=== PATIENT | female | born 1955 | race Caucasian/White ===

== ENCOUNTER → 2017-05-28 | Outpatient (REF) | payer MEDICARE, OTHER ==
[2017-05-28 13:07] LABS: MEAN CORPUSCULAR HEMOGLOBIN 29.2 pg (27.0-33.0); MEAN CORPUSCULAR HGB CONC 32.8 g/dl (32.0-36.5); WHITE BLOOD COUNT 6.7 K/mm3 (4.0-10.0)
[2017-05-28 13:34] LABS: ALBUMIN 3.8 GM/DL (3.2-5.2); ALBUMIN/GLOBULIN RATIO 1.46 (1.00-1.93); ALKALINE PHOSPHATASE 70 U/L (45-117); ALT/SGPT 22 U/L (12-78); ANION GAP 6 MEQ/L (8-16); AST/SGOT 14 U/L (15-37); BILIRUBIN,TOTAL 0.7 MG/DL (0.2-1.0); BLOOD UREA NITROGEN 9 MG/DL (7-18); CALCIUM LEVEL 8.8 MG/DL (8.8-10.2); CARBON DIOXIDE LEVEL 30 MEQ/L (21-32); CHLORIDE LEVEL 107 MEQ/L (98-107); CHOLESTEROL LEVEL 261 MG/DL (<200); CREATININE FOR GFR 0.88 MG/DL (0.55-1.02); FREE T4 0.85 NG/DL (0.76-1.46); GLOMERULAR FILTRATION RATE > 60.0 (>45); GLUCOSE, FASTING 89 MG/DL (80-110); SODIUM LEVEL 143 MEQ/L (136-145); TOTAL PROTEIN 6.4 GM/DL (6.4-8.2); TRIGLYCERIDES LEVEL 160 MG/DL (<150)
[2017-05-28 14:43] LABS: HEP C VIRUS AB SCREEN MEDICARE 1.2 INDEX (<0.8)
== END ==
LOC: M SFHCADAM 09:29
PROVIDERS: ATTEND Physician Assistant
DX: E78.5 Hyperlipidemia, unspecified (principal); F17.200 Nicotine dependence, unspecified, uncomplicated; E03.9 Hypothyroidism, unspecified; E55.9 Vitamin D deficiency, unspecified; Z11.59 Encounter for screening for other viral diseases
CPT/HCPCS: 80053; 80061; 82306; 84439; 84443; 85027; 87521; G0472

== ENCOUNTER → 2017-06-09 | Outpatient (CLI) | payer MEDICARE, OTHER ==
--- NOTE | 2017-06-09 17:10 | REP ---
Clinical: Chronic left hip pain. Technique: Neutral and frog lateral views of the left hip. Findings: Age-related changes are appreciated including minimal joint space narrowing and subtle increase sclerosis to the acetabular roof. No acute fracture dislocation. No further overt osteoarthritic degenerative changes are appreciated. Impression: Age-related degenerative changes. No acute fracture or dislocation. Signed by Pollo Sandoval MD 06/09/2017 05:01 P
--- NOTE | 2017-06-09 17:16 | REP ---
LUMBAR SPINE COMPLETE: 06/09/2017. COMPARISON: No prior study. CLINICAL HISTORY: Low back and left hip pain for 3 months. FINDINGS: Five views are provided. Normal lordosis is maintained. There is slight disc space narrowing at L5-S1. There is facet arthropathy present. A few millimeters of retrolisthesis of L5 on S1 due to that arthropathy. The L4-5 level and above shows intact disc height. Vertebral body heights are normal throughout. Tiny anterior osteophytes are noted. No compression deformity is seen. No spondylolysis or spondylolisthesis noted. Vascular calcifications aorta and iliac vessels. The pedicles, spinous and transverse processes are intact. No scoliosis. IMPRESSION. 1. Minor degenerative disc and facet arthritic changes at L5-S1 without compression fractures, spondylolysis or focal lesion. A few millimeters of retrolisthesis of L5 on S1 due to that arthropathy. Signed by Harvey Vásquez MD 06/09/2017 05:26 P
== END ==
LOC: M ADAMS 16:32
PROVIDERS: ATTEND Physician Assistant
DX: M16.12 Unilateral primary osteoarthritis, left hip (principal); M25.652 Stiffness of left hip, not elsewhere classified; M25.552 Pain in left hip

== ENCOUNTER → 2017-08-03 | Outpatient (CLI) | payer MEDICARE, OTHER ==
--- NOTE | 2017-08-03 15:12 | REPMRS ---
Patient History The patient states she had a clinical breast exam in 07/2017. Patient is postmenopausal. No known family history of cancer. Taking unspecified hormones for 24 years. Digital Woman Screen Mammo: August 03, 2017 - Exam #: [id number] Bilateral CC and MLO view(s) were taken. Technologist: Nidhi Ovalles, Technologist Prior study comparison: June 30, 2016, digital woman screen mammo performed at [facility]. June 28, 2015, digital woman screen mammo performed at [facility]. June 27, 2014, digital woman screen mammo performed at [facility]. FINDINGS: There are scattered fibroglandular densities. There has been no change in the appearance of the mammogram from the prior studies. There is a mild amount of scattered fibroglandular density which is fairly symmetric. There is no interval development of dominant mass, architectural distortion, or clustered microcalcification suggestive of malignancy. ASSESSMENT: BI-RADS/ACR category 1 mammogram. Negative. Recommendation Routine screening mammogram in 1 year (for women over age 40). This mammogram was interpreted with the aid of an FDA-approved computer-aided dectection system. Electronically Signed By: Ivan Tsai MD 08/03/17 [id number]
== END ==
LOC: M WHC 14:16
PROVIDERS: ATTEND Nurse Practitioner Women's Health
DX: Z01.419 Encounter for gynecological examination (general) (routine) without abnormal findings (principal); Z12.31 Encounter for screening mammogram for malignant neoplasm of breast; Z78.0 Asymptomatic menopausal state; Z92.29 Personal history of other drug therapy
CPT/HCPCS: G0101; G0202

== ENCOUNTER → 2018-04-13 | Day surgery (SDC) | payer MEDICARE, OTHER ==
[~2018-04-13] MED LIST: BSS with VANC/TOB/EPI for EYE CASES IR; HEALON DUET (HEALON 10MG/ML 0.55ML & HEALON ENDOCOAT 30MG/ML 0.85ML) As Ordered; LIDOCAINE 1% SDV 5 ML VIAL As Ordered; MIDAZOLAM INJ 2 MG/2 ML VIAL (J2250) As Ordered; MOXIFLOXACIN IN BSS 0.25MG/0.25ML INTRACAMERAL INJ (OR EYE ONLY)(J2280) As Ordered; OFLOXACIN 0.3 % (OCUFLOX) OPTH SOL 5ML OD; PHENYLEPHRINE 2.5% OPHTH SOL 2ML OD; PHENYLEPHRINE HCL 10 % OPHTH. SOL 5ML OD; POVIDONE-IODINE 5% OPHTH PREP SOL 30ML As Ordered; TRIAMCINOLONE PRES FR 40 MG/ML 1ML(TRIESENCE)(OR EYE ONLY)(J3300 PER 1MG) As Ordered; TROPICAMIDE 1% OPHTH SOLN 2ML OD; fentaNYL 100 MCG/2 ML INJECTION (J3010) As Ordered
[2018-04-13] MEDS: LIDOCAINE 3.5 % 1ML OPHTH TOPICAL GEL OU ×2 (07:35)
[2018-04-13] MEDS: CYCLOPENTOLATE 2% OPHTH SOLN 2ML BTL OD ×2 (07:35)
== END | disposition home or self-care (01) ==
LOC: M SDC 06:50
DX: H25.9 Unspecified age-related cataract (principal); Z53.09 Procedure and treatment not carried out because of other contraindication; H10.9 Unspecified conjunctivitis

== ENCOUNTER → 2018-06-02 | Outpatient (REF) | payer MEDICARE, OTHER ==
[2018-06-02 12:58] LABS: HEMATOCRIT 45.1 % (36.0-47.0); HEMOGLOBIN 14.2 g/dl (12.0-15.5); MEAN CORPUSCULAR HEMOGLOBIN 28.4 pg (27.0-33.0); MEAN CORPUSCULAR HGB CONC 31.5 g/dl (32.0-36.5); MEAN CORPUSCULAR VOLUME 90.2 fl (80.0-96.0); PLATELET COUNT, AUTOMATED 286 10^3/uL (150-450); RED CELL DISTRIBUTION WIDTH 12.8 % (11.5-14.5); WHITE BLOOD COUNT 6.4 10^3/uL (4.0-10.0)
[2018-06-02 13:24] LABS: TOTAL 25(OH) VITAMIN D 25.3 NG/ML (30.0-100.0)
[2018-06-02 13:27] LABS: ALBUMIN 3.7 GM/DL (3.2-5.2); ALBUMIN/GLOBULIN RATIO 1.19 (1.00-1.93); ALKALINE PHOSPHATASE 82 U/L (45-117); ALT/SGPT 22 U/L (12-78); ANION GAP 8 MEQ/L (8-16); AST/SGOT 14 U/L (7-37); BILIRUBIN,TOTAL 0.9 MG/DL (0.2-1.0); BLOOD UREA NITROGEN 13 MG/DL (7-18); CALCIUM LEVEL 9.2 MG/DL (8.8-10.2); CARBON DIOXIDE LEVEL 29 MEQ/L (21-32); CHLORIDE LEVEL 106 MEQ/L (98-107); CHOLESTEROL LEVEL 259 MG/DL (<200); CHOLESTEROL RISK RATIO 4.389 (<5); CREATININE FOR GFR 1.01 MG/DL (0.55-1.30); GLOMERULAR FILTRATION RATE 59.3 (>45); GLUCOSE, FASTING 84 MG/DL (70-100); HDL CHOLESTEROL 59 MG/DL (>40); NON-HDL-C 200 MG/DL; SODIUM LEVEL 143 MEQ/L (136-145); TOTAL PROTEIN 6.8 GM/DL (6.4-8.2); TRIGLYCERIDES LEVEL 90 MG/DL (<150)
[2018-06-02 13:39] LABS: POTASSIUM SERUM 5.4 MEQ/L (3.5-5.1)
== END ==
LOC: M SFHCADAM 11:12
DX: F17.200 Nicotine dependence, unspecified, uncomplicated (principal); E78.5 Hyperlipidemia, unspecified
CPT/HCPCS: 80053

== ENCOUNTER → 2018-08-04 | Outpatient (CLI) | payer MEDICARE, OTHER | LOC: M WHC 14:27 | DX: Z12.31 Encounter for screening mammogram for malignant neoplasm of breast (principal); Z78.0 Asymptomatic menopausal state; Z79.890 Hormone replacement therapy | CPT/HCPCS: 77067 ==

== ENCOUNTER → 2019-09-14 | Outpatient (REF) | payer MEDICARE, OTHER ==
[~2019-09-14] MED LIST changes: +ATIV1TAB10 PO; -BSS with VANC/TOB/EPI for EYE CASES IR; +BUSP5TA PO; +CETI10TA PO; +ESTR0.5T3 PO; +ESTR25TA PO; -HEALON DUET (HEALON 10MG/ML 0.55ML & HEALON ENDOCOAT 30MG/ML 0.85ML) As Ordered; -LIDOCAINE 1% SDV 5 ML VIAL As Ordered; +MEDR1TAB2 PO; -MIDAZOLAM INJ 2 MG/2 ML VIAL (J2250) As Ordered; -MOXIFLOXACIN IN BSS 0.25MG/0.25ML INTRACAMERAL INJ (OR EYE ONLY)(J2280) As Ordered; -OFLOXACIN 0.3 % (OCUFLOX) OPTH SOL 5ML OD; -PHENYLEPHRINE 2.5% OPHTH SOL 2ML OD; -PHENYLEPHRINE HCL 10 % OPHTH. SOL 5ML OD; -POVIDONE-IODINE 5% OPHTH PREP SOL 30ML As Ordered; +PROBCAP14 PO; -TRIAMCINOLONE PRES FR 40 MG/ML 1ML(TRIESENCE)(OR EYE ONLY)(J3300 PER 1MG) As Ordered; -TROPICAMIDE 1% OPHTH SOLN 2ML OD; +ZOLO25TA PO; -fentaNYL 100 MCG/2 ML INJECTION (J3010) As Ordered
== END ==
LOC: M PLALAB 14:10
PROVIDERS: ATTEND Nurse Practitioner Women's Health
DX: Z12.4 Encounter for screening for malignant neoplasm of cervix (principal)

== ENCOUNTER → 2019-09-14 | Outpatient (CLI) | payer MEDICARE, OTHER ==
--- NOTE | 2019-09-14 19:08 | REPMRS ---
Patient History The patient states she had a clinical breast exam in 2018. No known family history of cancer. Taking unspecified hormones for 25 years. Digital Woman Screen Mammo: September 14, 2019 - Exam #: [id number] Bilateral CC and MLO view(s) were taken. Technologist: Susan Khanna, Technologist Prior study comparison: August 04, 2018, bilateral digital woman screen mammo performed at [facility]. August 03, 2017, digital woman screen mammo performed at [facility]. June 30, 2016, digital woman screen mammo performed at [facility]. FINDINGS: The breast tissue is almost entirely fat. There has been no change in the appearance of the mammogram from the prior studies. There is no interval development of dominant mass, architectural distortion, or grouped microcalcification typical of malignancy. 3-D tomosynthesis shows no additional findings. Assessment: BI-RADS/ACR category 1 mammogram. Negative Mammogram. Recommendation Routine screening mammogram of both breasts in 1 year (for women over age 40). This patient's Lifetime Breast Cancer RIsk is estimated at 4.5 %. This mammogram was interpreted with the aid of an FDA-approved computer-aided dectection system. Electronically Signed By: Ivan Tsai MD 09/14/19 [id number]
== END ==
LOC: M WHC 13:47
PROVIDERS: ATTEND Nurse Practitioner Women's Health
DX: Z12.31 Encounter for screening mammogram for malignant neoplasm of breast (principal); Z92.29 Personal history of other drug therapy
CPT/HCPCS: 77063; 77067; G0463

== ENCOUNTER → 2019-11-28 | Outpatient (REF) | payer MEDICARE, OTHER ==
[2019-11-28 12:59] LABS: ALBUMIN 3.7 GM/DL (3.2-5.2); BILIRUBIN,TOTAL 0.7 MG/DL (0.2-1.0); CHOLESTEROL RISK RATIO 4.274 (<5); CREATININE FOR GFR 1.01 MG/DL (0.55-1.30); FREE T4 0.9 NG/DL (0.76-1.46); GLOMERULAR FILTRATION RATE 58.9 (>45); POTASSIUM SERUM 5.4 MEQ/L (3.5-5.1); THYROID STIMULATING HORMONE 1.78 uIU/ML (0.358-3.740); TOTAL PROTEIN 6.4 GM/DL (6.4-8.2)
[2019-11-28 13:00] LABS: TOTAL 25(OH) VITAMIN D 11.6 NG/ML (30.0-100.0)
[2019-11-28 13:08] LABS: HEMATOCRIT 44.3 % (36.0-47.0); HEMOGLOBIN 14.1 g/dl (12.0-15.5); MEAN CORPUSCULAR HEMOGLOBIN 28.5 pg (27.0-33.0); MEAN CORPUSCULAR HGB CONC 31.8 g/dl (32.0-36.5); MEAN CORPUSCULAR VOLUME 89.7 fl (80.0-96.0); PLATELET COUNT, AUTOMATED 265 10^3/uL (150-450); RED BLOOD COUNT 4.94 10^6/uL (4.00-5.40); WHITE BLOOD COUNT 6.1 10^3/uL (4.0-10.0)
== END ==
LOC: M SFHCADAM 09:40
PROVIDERS: ATTEND Physician Assistant
DX: E78.5 Hyperlipidemia, unspecified (principal); F17.210 Nicotine dependence, cigarettes, uncomplicated; E03.9 Hypothyroidism, unspecified; E55.9 Vitamin D deficiency, unspecified
CPT/HCPCS: 80053; 80061; 82306; 84439; 84443; 85027; 99406; G0463

== ENCOUNTER → 2020-10-10 | Outpatient (CLI) | payer MEDICARE, OTHER ==
--- NOTE | 2020-10-10 13:53 | REPMRS ---
Patient History The patient states she has not had a clinical breast exam in over a year. No known family history of cancer. Taking unspecified hormones for 25 years. 3D TOMOSYNTHESIS WAS PERFORMED. [facility] lifetime risk for breast cancer is 4.3%. Volpara breast density b. Digital Woman Screen Mammo: October 10, 2020 - Exam #: [id number] Bilateral CC and MLO view(s) were taken. Technologist: Susan Khanna, Technologist Prior study comparison: September 14, 2019, bilateral digital woman screen mammo performed at [facility]. August 04, 2018, bilateral digital woman screen mammo performed at [facility]. FINDINGS: There are scattered fibroglandular densities. There has been no change in the appearance of the mammogram from the prior studies. There is a mild amount of residual fibroglandular tissue which is fairly symmetric. There is no interval development of dominant mass, architectural distortion, or clustered microcalcification suggestive of malignancy. Assessment: BI-RADS/ACR category 1 mammogram. Negative Mammogram. Recommendation Routine screening mammogram in 1 year (for women over age 40). This mammogram was interpreted with the aid of an FDA-approved computer-aided dectection system. Electronically Signed By: Jimy Harp MD 10/10/20 [id number]
== END ==
LOC: M WHC 12:54
PROVIDERS: ATTEND Physician Assistant
DX: Z12.31 Encounter for screening mammogram for malignant neoplasm of breast (principal)

== ENCOUNTER → 2020-12-19 | Outpatient (REF) | payer MEDICARE, OTHER ==
[2020-12-19 16:53] LABS: HEMATOCRIT 46.7 % (36.0-47.0); HEMOGLOBIN 14.9 g/dl (12.0-15.5); MEAN CORPUSCULAR HEMOGLOBIN 28.8 pg (27.0-33.0); MEAN CORPUSCULAR HGB CONC 31.9 g/dl (32.0-36.5); MEAN CORPUSCULAR VOLUME 90.2 fl (80.0-96.0); PLATELET COUNT, AUTOMATED 258 10^3/uL (150-450); RED BLOOD COUNT 5.18 10^6/uL (4.00-5.40); WHITE BLOOD COUNT 6.4 10^3/uL (4.0-10.0)
[2020-12-19 17:25] LABS: BILIRUBIN,TOTAL 0.8 MG/DL (0.2-1.0); CALCIUM LEVEL 9.4 MG/DL (8.8-10.2); CHOLESTEROL RISK RATIO 4.13 (<5); CREATININE FOR GFR 1.02 MG/DL (0.55-1.30); FREE T4 0.84 NG/DL (0.76-1.46); GLOMERULAR FILTRATION RATE 58.1 (>45); POTASSIUM SERUM 5.2 MEQ/L (3.5-5.1); THYROID STIMULATING HORMONE 1.93 uIU/ML (0.358-3.740); TOTAL PROTEIN 6.8 GM/DL (6.4-8.2)
[2020-12-19 17:27] LABS: TOTAL 25(OH) VITAMIN D 12.3 NG/ML (30.0-100.0)
== END ==
LOC: M SFHCADAM 12:06
PROVIDERS: ATTEND Physician Assistant
DX: N95.9 Unspecified menopausal and perimenopausal disorder (principal); E78.5 Hyperlipidemia, unspecified; E55.9 Vitamin D deficiency, unspecified; F17.200 Nicotine dependence, unspecified, uncomplicated
CPT/HCPCS: 80053; 80061; 82306; 84439; 84443; 85027; 93005; G0463

== ENCOUNTER → 2021-03-20 | Outpatient (REF) | payer MEDICARE, OTHER ==
[2021-03-20 14:03] LABS: ALBUMIN 3.7 GM/DL (3.2-5.2); BILIRUBIN,TOTAL 0.6 MG/DL (0.2-1.0); CHOLESTEROL RISK RATIO 3.5 (<5); GLOMERULAR FILTRATION RATE 59.4 (>45); TOTAL PROTEIN 6.5 GM/DL (6.4-8.2)
[2021-03-20 14:12] LABS: TOTAL 25(OH) VITAMIN D 53.3 NG/ML (30.0-100.0)
== END ==
LOC: M SFHCADAM 08:56
PROVIDERS: ATTEND Physician Assistant
DX: E78.00 Pure hypercholesterolemia, unspecified (principal); E55.9 Vitamin D deficiency, unspecified

== ENCOUNTER → 2021-03-26 | Outpatient (CLI) | payer MEDICARE, OTHER ==
--- NOTE | 2021-03-26 15:00 | REP ---
INDICATION: UNILATERAL PRIMARY OSTEO. COMPARISON: None. TECHNIQUE: Axial T1 and T2. Sagittal T2. Coronal T1, fat suppressed proton density, fat suppressed T2 and STIR. FINDINGS: The femoral heads are spherical in shape and symmetric in appearance. There is mild bilateral rather symmetric appearing hip joint space narrowing. No abnormal focal chondral or subchondral signal abnormality is seen on either side. There is no hip joint effusion. There is no evidence of a mass or mass effect. The cortical and marrow signal throughout the imaged pelvis is within normal limits. Mild degenerative changes are seen involving the imaged portions of the sacroiliac joints inferiorly. There is T2 hyper signal seen in the trochanteric tendono bursal region of each hip right slightly greater than left. Small [id number] dedicated magnified images of the right hip in all 3 planes shows small amount of fluid within the tendono bursal region. IMPRESSION: 1. Evidence of bilateral trochanteric tendono bursitis right greater than left as described above. 2. Mild bilateral hip degenerative changes and sacroiliac joint degenerative changes as described above. <Electronically signed by Carlyle Stanton > 03/26/21 [id number]
== END ==
LOC: M PLAIMG 13:52
PROVIDERS: ATTEND Physician Assistant
DX: M16.12 Unilateral primary osteoarthritis, left hip (principal)

== ENCOUNTER → 2021-05-15 | Outpatient (CLI) | payer MEDICARE, OTHER | LOC: M PLAIMG 14:34 | PROVIDERS: ATTEND Physician Assistant | DX: M47.896 Other spondylosis, lumbar region (principal); M48.061 Spinal stenosis, lumbar region without neurogenic claudication ==

== ENCOUNTER → 2021-07-08 | Outpatient (CLI) | payer MEDICARE, OTHER ==
--- NOTE | 2021-07-08 13:29 | REP ---
INDICATION: TOBACCO USE, COUGHING ALLERGIC SINUSITIS COMPARISON: 09/12/2013 TECHNIQUE: PA and lateral. FINDINGS: The mediastinum and cardiac silhouette are normal. The lung boggs are clear and without acute consolidation, effusion, or pneumothorax. The skeletal structures are intact and normal. IMPRESSION: No acute cardiopulmonary process. <Electronically signed by Pollo Sandoval > 07/08/21 [id number]
== END ==
LOC: M ADAMS 13:09
PROVIDERS: ATTEND Physician Assistant
DX: R05.9 Cough, unspecified (principal); J30.9 Allergic rhinitis, unspecified; F17.200 Nicotine dependence, unspecified, uncomplicated
CPT/HCPCS: 71046; G0463

== ENCOUNTER → 2022-08-10 | Outpatient (CLI) | payer MEDICARE, OTHER ==
[~2022-08-10] MED LIST changes: +ACET-907 PO; +ERGO500029 PO; +PRAV20TA2 PO
== END ==
LOC: M LABSMTC 11:40
PROVIDERS: ATTEND Anesthesiology
DX: Z01.812 Encounter for preprocedural laboratory examination (principal); Z11.52 Encounter for screening for COVID-19

== ENCOUNTER 2022-08-13 10:29 | Day surgery (SDC) | payer MEDICARE, OTHER ==
[~2022-08-13] VITALS: Ht 163.8 cm; Wt 59.8 kg
[~2022-08-13 10:29] MED LIST changes: +NS 1,000 ML IV ONE
[2022-08-13] MEDS ORDERED: LIDOCAINE 2% 100MG/5ML SDV (FOR ANES.) As Ordered ONE (13:32)
[2022-08-13] MEDS ORDERED: propofoL 200 MG/20 ML VIAL As Ordered ONE (13:32)
[2022-08-13 14:11] VITALS: BP 122/56
== END 2022-08-13 14:18 | disposition home or self-care (01) ==
LOC: M OPP 10:29
PROVIDERS: ATTEND Internal Medicine Gastroenterology
DX: Z12.11 Encounter for screening for malignant neoplasm of colon (principal); Z86.010 Personal history of colon polyps; D12.5 Benign neoplasm of sigmoid colon; K57.30 Diverticulosis of large intestine without perforation or abscess without bleeding; F17.200 Nicotine dependence, unspecified, uncomplicated; Z79.02 Long term (current) use of antithrombotics/antiplatelets; Z79.818 Long term (current) use of other agents affecting estrogen receptors and estrogen levels; Z79.899 Other long term (current) drug therapy; Z86.16 Personal history of COVID-19; Z88.0 Allergy status to penicillin; Z88.1 Allergy status to other antibiotic agents; Z88.5 Allergy status to narcotic agent; Z88.8 Allergy status to other drugs, medicaments and biological substances; Z80.6 Family history of leukemia; Z80.8 Family history of malignant neoplasm of other organs or systems

== ENCOUNTER → 2022-11-06 | Outpatient (REF) | payer MEDICARE, OTHER ==
[~2022-11-06] MED LIST changes: -NS 1,000 ML IV ONE
[2022-11-06 22:00] LABS: HEMATOCRIT 43.4 % (36.0-47.0); HEMOGLOBIN 13.6 g/dl (12.0-15.5); MEAN CORPUSCULAR HEMOGLOBIN 28.9 pg (27.0-33.0); MEAN CORPUSCULAR HGB CONC 31.3 g/dl (32.0-36.5); MEAN CORPUSCULAR VOLUME 92.1 fl (80.0-96.0); PLATELET COUNT, AUTOMATED 263 10^3/uL (150-450); RED BLOOD COUNT 4.71 10^6/uL (4.00-5.40); WHITE BLOOD COUNT 7.7 10^3/uL (4.0-10.0)
[2022-11-06 22:40] LABS: ALKALINE PHOSPHATASE 86 U/L (46-116); ALT/SGPT 18 U/L (7.0-40); AST/SGOT 24 U/L (<34); BILIRUBIN,TOTAL 1.4 MG/DL (0.3-1.2); BLOOD UREA NITROGEN 17 MG/DL (9-23); CALCIUM LEVEL 9.6 MG/DL (8.3-10.6); CARBON DIOXIDE LEVEL 30 MMOL/L (20-31); CHLORIDE LEVEL 103 MMOL/L (98-107); CHOLESTEROL LEVEL 238 MG/DL (<200); CHOLESTEROL RISK RATIO 3.03 (<5); CREATININE FOR GFR 0.94 MG/DL (0.55-1.30); FREE T4 1.01 NG/DL (0.89-1.76); GLOMERULAR FILTRATION RATE > 60.0 (>45); GLUCOSE, FASTING 98 MG/DL (74-106); HDL CHOLESTEROL 78.4 MG/DL (>40); LDL CHOLESTEROL 148.6 MG/DL (<100); NON-HDL-C 160 MG/DL; POTASSIUM SERUM 5.3 MMOL/L (3.5-5.1); SODIUM LEVEL 139 MMOL/L (136-145); THYROID STIMULATING HORMONE 1.502 uIU/ML (0.55-4.78); TOTAL 25(OH) VITAMIN D 68.5 NG/ML (20.0-100.0); TOTAL PROTEIN 6.8 G/DL (5.7-8.2); TRIGLYCERIDES LEVEL 55 MG/DL (<150)
== END ==
LOC: M SFHCADAM 15:20
PROVIDERS: ATTEND Physician Assistant
DX: E55.9 Vitamin D deficiency, unspecified (principal); F32.2 Major depressive disorder, single episode, severe without psychotic features; N95.9 Unspecified menopausal and perimenopausal disorder; F42.3 Hoarding disorder; E03.9 Hypothyroidism, unspecified; E78.00 Pure hypercholesterolemia, unspecified; F17.200 Nicotine dependence, unspecified, uncomplicated

== ENCOUNTER → 2022-12-02 | Outpatient (CLI) | payer MEDICARE, OTHER | LOC: M RAD 09:42 | PROVIDERS: ATTEND Physician Assistant | DX: I65.22 Occlusion and stenosis of left carotid artery (principal) ==

== ENCOUNTER → 2023-01-25 | Outpatient (CLI) | payer MEDICARE, OTHER | LOC: M SOG 08:12 | PROVIDERS: ATTEND Orthopaedic Surgery | DX: M54.50 Low back pain, unspecified (principal) ==

== ENCOUNTER → 2023-02-12 | Outpatient (CLI) | payer MEDICARE, OTHER | LOC: M RAD 13:08 | PROVIDERS: ATTEND Orthopaedic Surgery | DX: M47.27 Other spondylosis with radiculopathy, lumbosacral region (principal) ==

== ENCOUNTER → 2023-04-19 | Outpatient (CLI) | payer MEDICARE, OTHER | LOC: M PAIN 16:00 | PROVIDERS: ATTEND Anesthesiology | DX: M48.061 Spinal stenosis, lumbar region without neurogenic claudication (principal); M51.16 Intervertebral disc disorders with radiculopathy, lumbar region; N32.81 Overactive bladder; M54.2 Cervicalgia; G47.00 Insomnia, unspecified; F90.9 Attention-deficit hyperactivity disorder, unspecified type; H81.09 Meniere's disease, unspecified ear; F41.9 Anxiety disorder, unspecified; K58.2 Mixed irritable bowel syndrome; I65.21 Occlusion and stenosis of right carotid artery; E78.5 Hyperlipidemia, unspecified; E55.9 Vitamin D deficiency, unspecified; F17.210 Nicotine dependence, cigarettes, uncomplicated; Z79.899 Other long term (current) drug therapy; Z88.5 Allergy status to narcotic agent; Z88.0 Allergy status to penicillin; Z88.8 Allergy status to other drugs, medicaments and biological substances ==

== ENCOUNTER → 2023-04-27 | Outpatient (CLI) | payer MEDICARE, OTHER | LOC: M PAIN 15:45 → M TMPAIN 15:45 | PROVIDERS: ATTEND Anesthesiology | DX: M48.062 Spinal stenosis, lumbar region with neurogenic claudication (principal); M51.16 Intervertebral disc disorders with radiculopathy, lumbar region; M48.061 Spinal stenosis, lumbar region without neurogenic claudication; N32.81 Overactive bladder; M54.2 Cervicalgia; G47.00 Insomnia, unspecified; F90.9 Attention-deficit hyperactivity disorder, unspecified type; H81.09 Meniere's disease, unspecified ear; F41.9 Anxiety disorder, unspecified; K58.2 Mixed irritable bowel syndrome; I65.21 Occlusion and stenosis of right carotid artery; E78.5 Hyperlipidemia, unspecified; E55.9 Vitamin D deficiency, unspecified; F17.210 Nicotine dependence, cigarettes, uncomplicated; Z79.899 Other long term (current) drug therapy; Z88.5 Allergy status to narcotic agent; Z88.0 Allergy status to penicillin; Z88.8 Allergy status to other drugs, medicaments and biological substances ==

== ENCOUNTER → 2023-05-13 | Outpatient (CLI) | payer MEDICARE, OTHER | LOC: M ADAMS 13:40 | PROVIDERS: ATTEND Physician Assistant | DX: R05.3 Chronic cough (principal) ==

== ENCOUNTER → 2023-05-20 | Outpatient (CLI) | payer MEDICARE, OTHER ==
[~2023-05-20] MED LIST changes: +ISOVUE-M 300 61% 15ML VIAL As Ordered ONE; +LIDOCAINE 1% SDV 30ML VIAL As Ordered ONE; +methylPREDNISolone SUSP 40MG/ML 1ML VIAL (DEPO MEDROL) As Ordered ONE
== END ==
LOC: M PAIN 13:00
PROVIDERS: ATTEND Anesthesiology
DX: M51.16 Intervertebral disc disorders with radiculopathy, lumbar region (principal); N32.81 Overactive bladder; M54.2 Cervicalgia; G47.00 Insomnia, unspecified; F41.9 Anxiety disorder, unspecified; K58.2 Mixed irritable bowel syndrome; E78.5 Hyperlipidemia, unspecified; E55.9 Vitamin D deficiency, unspecified; F17.210 Nicotine dependence, cigarettes, uncomplicated; Z79.899 Other long term (current) drug therapy; Z88.0 Allergy status to penicillin; Z88.5 Allergy status to narcotic agent; Z88.8 Allergy status to other drugs, medicaments and biological substances
CPT/HCPCS: 62323; J1030; Q9967

== ENCOUNTER → 2023-06-10 | Outpatient (CLI) | payer MEDICARE, OTHER ==
[~2023-06-10] MED LIST changes: -ISOVUE-M 300 61% 15ML VIAL As Ordered ONE; -LIDOCAINE 1% SDV 30ML VIAL As Ordered ONE; -methylPREDNISolone SUSP 40MG/ML 1ML VIAL (DEPO MEDROL) As Ordered ONE
== END ==
LOC: M CARPUL 13:45
PROVIDERS: ATTEND Physician Assistant
DX: R01.1 Cardiac murmur, unspecified (principal)

== ENCOUNTER → 2023-06-30 | Outpatient (CLI) | payer MEDICARE, OTHER | LOC: M PAIN 15:00 | PROVIDERS: ATTEND Anesthesiology | DX: M48.00 Spinal stenosis, site unspecified (principal); M51.16 Intervertebral disc disorders with radiculopathy, lumbar region; N32.81 Overactive bladder; F41.9 Anxiety disorder, unspecified; K58.2 Mixed irritable bowel syndrome; E78.5 Hyperlipidemia, unspecified; I65.23 Occlusion and stenosis of bilateral carotid arteries; E55.9 Vitamin D deficiency, unspecified; F17.210 Nicotine dependence, cigarettes, uncomplicated; Z79.899 Other long term (current) drug therapy; Z88.0 Allergy status to penicillin; Z88.5 Allergy status to narcotic agent; Z88.8 Allergy status to other drugs, medicaments and biological substances ==

== ENCOUNTER → 2023-07-26 | Outpatient (CLI) | payer MEDICARE, OTHER | LOC: M WHC 12:57 | PROVIDERS: ATTEND Physician Assistant | DX: Z12.31 Encounter for screening mammogram for malignant neoplasm of breast (principal) ==

== ENCOUNTER → 2023-08-27 | Outpatient (CLI) | payer MEDICARE, OTHER ==
[~2023-08-27] MED LIST changes: +TRIAMCINOLONE ACETONIDE SUSP 40MG/ML 1ML VIAL As Ordered ONE
== END ==
LOC: M PAIN 10:15
PROVIDERS: ATTEND Anesthesiology
DX: M47.816 Spondylosis without myelopathy or radiculopathy, lumbar region (principal); M79.18 Myalgia, other site; G89.29 Other chronic pain; N32.81 Overactive bladder; M54.2 Cervicalgia; M54.40 Lumbago with sciatica, unspecified side; G47.00 Insomnia, unspecified; F41.9 Anxiety disorder, unspecified; K58.2 Mixed irritable bowel syndrome; E78.5 Hyperlipidemia, unspecified; E55.9 Vitamin D deficiency, unspecified; F17.210 Nicotine dependence, cigarettes, uncomplicated; Z88.5 Allergy status to narcotic agent; Z88.0 Allergy status to penicillin; Z88.8 Allergy status to other drugs, medicaments and biological substances; Z79.899 Other long term (current) drug therapy
CPT/HCPCS: 20552; J0665; J3301

== ENCOUNTER → 2023-10-28 | Outpatient (CLI) | payer MEDICARE, OTHER ==
[~2023-10-28] MED LIST changes: -TRIAMCINOLONE ACETONIDE SUSP 40MG/ML 1ML VIAL As Ordered ONE
== END ==
LOC: M PAIN 11:45
PROVIDERS: ATTEND Nurse Practitioner Family
DX: M79.10 Myalgia, unspecified site (principal); G89.29 Other chronic pain; F17.210 Nicotine dependence, cigarettes, uncomplicated; Z88.0 Allergy status to penicillin; Z88.5 Allergy status to narcotic agent; Z88.8 Allergy status to other drugs, medicaments and biological substances; Z79.899 Other long term (current) drug therapy

== ENCOUNTER → 2023-11-29 | Outpatient (CLI) | payer MEDICARE, OTHER | LOC: M PAIN 14:45 | PROVIDERS: ATTEND Nurse Practitioner Family | DX: M79.18 Myalgia, other site (principal); G89.29 Other chronic pain; M54.50 Low back pain, unspecified; M48.061 Spinal stenosis, lumbar region without neurogenic claudication; F41.9 Anxiety disorder, unspecified; K58.2 Mixed irritable bowel syndrome; E78.5 Hyperlipidemia, unspecified; I65.23 Occlusion and stenosis of bilateral carotid arteries; F17.210 Nicotine dependence, cigarettes, uncomplicated; Z79.899 Other long term (current) drug therapy; Z88.0 Allergy status to penicillin; Z88.5 Allergy status to narcotic agent; Z88.8 Allergy status to other drugs, medicaments and biological substances ==

== ENCOUNTER → 2024-01-25 | Outpatient (CLI) | payer MEDICARE, OTHER ==
[~2024-01-25] MED LIST changes: +TRIAMCINOLONE ACETONIDE SUSP 40MG/ML 1ML VIAL As Ordered ONE
== END ==
LOC: M PAIN 10:00
PROVIDERS: ATTEND Anesthesiology
DX: M79.18 Myalgia, other site (principal); G89.29 Other chronic pain; G83.4 Cauda equina syndrome; F41.9 Anxiety disorder, unspecified; M48.061 Spinal stenosis, lumbar region without neurogenic claudication; F17.210 Nicotine dependence, cigarettes, uncomplicated; K58.2 Mixed irritable bowel syndrome; E78.5 Hyperlipidemia, unspecified; E55.9 Vitamin D deficiency, unspecified; Z79.899 Other long term (current) drug therapy; Z88.0 Allergy status to penicillin; Z88.5 Allergy status to narcotic agent; Z88.8 Allergy status to other drugs, medicaments and biological substances
CPT/HCPCS: 20552; J0665; J3301

== ENCOUNTER → 2024-02-24 | Outpatient (CLI) | payer MEDICARE, OTHER ==
[~2024-02-24] MED LIST changes: -TRIAMCINOLONE ACETONIDE SUSP 40MG/ML 1ML VIAL As Ordered ONE
== END ==
LOC: M PAIN 11:45
PROVIDERS: ATTEND Nurse Practitioner Family
DX: M47.816 Spondylosis without myelopathy or radiculopathy, lumbar region (principal); M47.817 Spondylosis without myelopathy or radiculopathy, lumbosacral region; G89.29 Other chronic pain; N32.81 Overactive bladder; M54.2 Cervicalgia; M54.40 Lumbago with sciatica, unspecified side; F41.9 Anxiety disorder, unspecified; E55.9 Vitamin D deficiency, unspecified; E78.5 Hyperlipidemia, unspecified; K58.2 Mixed irritable bowel syndrome; F17.210 Nicotine dependence, cigarettes, uncomplicated; Z79.899 Other long term (current) drug therapy; Z88.0 Allergy status to penicillin; Z88.5 Allergy status to narcotic agent; Z88.8 Allergy status to other drugs, medicaments and biological substances

== ENCOUNTER → 2024-04-06 | Outpatient (CLI) | payer MEDICARE, OTHER | LOC: M PAIN 16:00 | PROVIDERS: ATTEND Nurse Practitioner Family | DX: M47.816 Spondylosis without myelopathy or radiculopathy, lumbar region (principal); M47.817 Spondylosis without myelopathy or radiculopathy, lumbosacral region; G89.29 Other chronic pain; N32.81 Overactive bladder; M54.2 Cervicalgia; M54.40 Lumbago with sciatica, unspecified side; G47.00 Insomnia, unspecified; F41.9 Anxiety disorder, unspecified; E55.9 Vitamin D deficiency, unspecified; F17.210 Nicotine dependence, cigarettes, uncomplicated; H81.09 Meniere's disease, unspecified ear; Z79.899 Other long term (current) drug therapy; Z88.0 Allergy status to penicillin; Z88.5 Allergy status to narcotic agent; Z88.8 Allergy status to other drugs, medicaments and biological substances ==

== ENCOUNTER → 2024-05-01 | Outpatient (CLI) | payer MEDICARE, OTHER | LOC: M ADAMS 13:41 | PROVIDERS: ATTEND Physician Assistant | DX: J20.9 Acute bronchitis, unspecified (principal) ==

== ENCOUNTER → 2024-06-16 | Outpatient (REF) | payer MEDICARE, OTHER ==
[2024-06-16 17:34] LABS: ALBUMIN 3.8 G/DL (3.2-5.2); BILIRUBIN,TOTAL 0.9 MG/DL (0.3-1.2); CALCIUM LEVEL 9.2 MG/DL (8.3-10.6); CREATININE FOR GFR 1.02 MG/DL (0.55-1.30); GLOMERULAR FILTRATION RATE 57.5 (>45); HDL CHOLESTEROL 58.2 MG/DL (>40); LDL CHOLESTEROL 135.6 MG/DL (<100); NON-HDL-C 174.8 MG/DL; POTASSIUM SERUM 4.7 MMOL/L (3.5-5.1); TOTAL PROTEIN 6.2 G/DL (5.7-8.2)
[2024-06-16 17:37] LABS: BASO % 0.6 % (0.0-1.0); EOS # 0.2 10^3/uL (0.0-0.5); EOS % 2.3 % (0.0-3.0); HEMOGLOBIN 14.1 g/dl (12.0-15.5); LYMPH # 1.7 10^3/uL (1.5-5.0); MEAN CORPUSCULAR HEMOGLOBIN 28.4 pg (27.0-33.0); MEAN CORPUSCULAR HGB CONC 31.3 g/dl (32.0-36.5); MEAN CORPUSCULAR VOLUME 90.5 fl (80.0-96.0); MONO # 0.6 10^3/uL (0.0-0.8); MONO % 8.3 % (2.0-8.0); NEUTROPHILS # 4.3 10^3/uL (1.5-8.5); NEUTROPHILS % 63.7 % (36.0-66.0); PLATELET COUNT, AUTOMATED 249 10^3/uL (150-450); RED BLOOD COUNT 4.97 10^6/uL (4.00-5.40); WHITE BLOOD COUNT 6.8 10^3/uL (4.0-10.0)
[2024-06-16 17:38] LABS: FREE T4 1.03 NG/DL (0.89-1.76); THYROID STIMULATING HORMONE 2.769 uIU/ML (0.55-4.78)
[2024-06-16 17:39] LABS: TOTAL 25(OH) VITAMIN D 43.3 NG/ML (20.0-100.0)
== END ==
LOC: M SFHCADAM 14:29
PROVIDERS: ATTEND Physician Assistant
DX: E78.00 Pure hypercholesterolemia, unspecified (principal); I35.0 Nonrheumatic aortic (valve) stenosis; F32.2 Major depressive disorder, single episode, severe without psychotic features; F17.218 Nicotine dependence, cigarettes, with other nicotine-induced disorders; N95.9 Unspecified menopausal and perimenopausal disorder

== ENCOUNTER → 2024-06-20 | Outpatient (CLI) | payer MEDICARE, OTHER | LOC: M WHC 15:45 | PROVIDERS: ATTEND Physician Assistant | DX: Z12.31 Encounter for screening mammogram for malignant neoplasm of breast (principal); R05.3 Chronic cough; F17.210 Nicotine dependence, cigarettes, uncomplicated; J44.9 Chronic obstructive pulmonary disease, unspecified; Z53.9 Procedure and treatment not carried out, unspecified reason ==

== ENCOUNTER → 2024-06-29 | Outpatient (CLI) | payer MEDICARE, OTHER ==
[~2024-06-29] MED LIST changes: +ISOVUE-M 300 61% 15ML VIAL As Ordered ONE; +LIDOCAINE 1% SDV 30ML VIAL As Ordered ONE; +TRIAMCINOLONE ACETONIDE SUSP 40MG/ML 1ML VIAL As Ordered ONE
== END ==
LOC: M PAIN 13:00
PROVIDERS: ATTEND Anesthesiology
DX: M47.816 Spondylosis without myelopathy or radiculopathy, lumbar region (principal); M54.50 Low back pain, unspecified; G89.29 Other chronic pain; G47.00 Insomnia, unspecified; K58.2 Mixed irritable bowel syndrome; F41.9 Anxiety disorder, unspecified; M54.2 Cervicalgia; E78.5 Hyperlipidemia, unspecified; E55.9 Vitamin D deficiency, unspecified; J44.9 Chronic obstructive pulmonary disease, unspecified; F17.210 Nicotine dependence, cigarettes, uncomplicated; Z79.899 Other long term (current) drug therapy; Z88.0 Allergy status to penicillin; Z88.1 Allergy status to other antibiotic agents; Z88.5 Allergy status to narcotic agent; Z88.8 Allergy status to other drugs, medicaments and biological substances
CPT/HCPCS: 64493; 64494; J0665; J3301; Q9967

== ENCOUNTER → 2024-07-21 | Outpatient (CLI) | payer MEDICARE, OTHER ==
[~2024-07-21] MED LIST changes: -ISOVUE-M 300 61% 15ML VIAL As Ordered ONE; -LIDOCAINE 1% SDV 30ML VIAL As Ordered ONE; -TRIAMCINOLONE ACETONIDE SUSP 40MG/ML 1ML VIAL As Ordered ONE
== END ==
LOC: M PAIN 14:00
PROVIDERS: ATTEND Nurse Practitioner Family
DX: M47.816 Spondylosis without myelopathy or radiculopathy, lumbar region (principal); M47.817 Spondylosis without myelopathy or radiculopathy, lumbosacral region; G89.29 Other chronic pain; M54.50 Low back pain, unspecified; G83.4 Cauda equina syndrome; M54.2 Cervicalgia; M48.061 Spinal stenosis, lumbar region without neurogenic claudication; G47.00 Insomnia, unspecified; H81.09 Meniere's disease, unspecified ear; F41.9 Anxiety disorder, unspecified; K58.2 Mixed irritable bowel syndrome; E78.5 Hyperlipidemia, unspecified; E55.9 Vitamin D deficiency, unspecified; J44.9 Chronic obstructive pulmonary disease, unspecified; F17.210 Nicotine dependence, cigarettes, uncomplicated; Z79.899 Other long term (current) drug therapy; Z88.0 Allergy status to penicillin; Z88.1 Allergy status to other antibiotic agents; Z88.8 Allergy status to other drugs, medicaments and biological substances

== ENCOUNTER → 2024-08-11 | Outpatient (CLI) | payer MEDICARE, OTHER | LOC: M RAD 14:27 | PROVIDERS: ATTEND Physician Assistant | DX: R05.3 Chronic cough (principal); F17.218 Nicotine dependence, cigarettes, with other nicotine-induced disorders ==

== ENCOUNTER → 2025-08-08 | Outpatient (REF) | payer MEDICARE, OTHER ==
[~2025-08-08] MED LIST changes: -PRAV20TA2 PO; +PRAV20TA78 PO
[2025-08-08 17:36] LABS: BASO # 0.1 10^3/uL (0.0-0.2); BASO % 0.8 % (0.0-1.0); EOS # 0.2 10^3/uL (0.0-0.5); EOS % 2.2 % (0.0-3.0); LYMPH # 2.0 10^3/uL (1.5-5.0); LYMPH % 27.8 % (24.0-44.0); MONO # 0.6 10^3/uL (0.0-0.8); MONO % 8.3 % (2.0-8.0); NEUTROPHILS # 4.3 10^3/uL (1.5-8.5); NEUTROPHILS % 60.6 % (36.0-66.0); PLATELET COUNT, AUTOMATED 273 10^3/uL (150-450)
[2025-08-08 17:40] LABS: ALT/SGPT 15.0 U/L (7.0-40); AST/SGOT 21.0 U/L (<34); CALCIUM LEVEL 9.4 MG/DL (8.3-10.6); CARBON DIOXIDE LEVEL 28.0 MMOL/L (20-31); CHLORIDE LEVEL 105.0 MMOL/L (98-107); CHOLESTEROL LEVEL 245.0 MG/DL (<200); CHOLESTEROL RISK RATIO 3.41 (<5); CREATININE FOR GFR 1.12 MG/DL (0.55-1.30); GLOMERULAR FILTRATION RATE 53.2 (>45); LDL CHOLESTEROL 151.1 MG/DL (<100); NON-HDL-C 173.3 MG/DL; POTASSIUM SERUM 4.6 MMOL/L (3.5-5.1); SODIUM LEVEL 142.0 MMOL/L (136-145); TRIGLYCERIDES LEVEL 111.0 MG/DL (<150)
[2025-08-08 17:42] LABS: FREE T4 1.0 NG/DL (0.89-1.76)
[2025-08-08 17:43] LABS: TOTAL 25(OH) VITAMIN D 62.6 NG/ML (20.0-100.0)
[2025-08-08 18:41] LABS: ESTIMATED AVERAGE GLUCOSE 126.0 MG/DL (60-110)
== END ==
LOC: M SFHCADAM 11:22
PROVIDERS: ATTEND Physician Assistant
DX: Z00.00 Encounter for general adult medical examination without abnormal findings (principal); F17.218 Nicotine dependence, cigarettes, with other nicotine-induced disorders; E78.00 Pure hypercholesterolemia, unspecified; N95.9 Unspecified menopausal and perimenopausal disorder; I65.23 Occlusion and stenosis of bilateral carotid arteries; I35.0 Nonrheumatic aortic (valve) stenosis; R42 Dizziness and giddiness; J44.9 Chronic obstructive pulmonary disease, unspecified; E03.9 Hypothyroidism, unspecified; Z79.899 Other long term (current) drug therapy

== ENCOUNTER → 2025-09-10 | Outpatient (CLI) | payer MEDICARE, OTHER | LOC: M RAD 13:22 | PROVIDERS: ATTEND Physician Assistant | DX: I65.23 Occlusion and stenosis of bilateral carotid arteries (principal) ==

== ENCOUNTER → 2025-09-13 | Outpatient (CLI) | payer MEDICARE, OTHER | LOC: M PLAIMG 15:00 | PROVIDERS: ATTEND Internal Medicine Pulmonary Disease | DX: R91.8 Other nonspecific abnormal finding of lung field (principal); J43.2 Centrilobular emphysema; I25.10 Atherosclerotic heart disease of native coronary artery without angina pectoris; N20.0 Calculus of kidney ==